=== PATIENT | female | born 2000 | race Caucasian/White ===

== ENCOUNTER 2023-07-01 09:07 | Outpatient (CLI) | payer BC, SELFPAY ==
[2023-07-01 12:48] LABS: Hematocrit 38.8 % (37.0-47.0); Hemoglobin 12.7 g/dL (12.0-15.0); Mean Corpuscular HGB Conc 32.7 g/dl (32-36); Mean Corpuscular Hemoglobin 28.7 pg (26-34); Mean Corpuscular Volume 87.8 fl (80-100); Mean Platelet Volume 10.4 fl (7.4-10.4); Platelet Count Result 416 k/mm3 (150-375); Red Blood Count 4.42 M/mm3 (4.2-5.4); Red Cell Distribution Width 13.1 % (11.5-14.5); White Blood Count 6.9 K/mm3 (4.5-10.0)
[2023-07-01 13:42] LABS: Alanine Aminotransferase 39 U/L (6-35); Albumin Level 3.7 g/dL (3.5-5.1); Alkaline Phosphatase 57 U/L (38-126); Anion Gap 7 mmol/L (8-16); Aspartate Amino Transferase 50 U/L (14-36); Bilirubin,Total 0.6 mg/dL (0.2-1.3); Blood Urea Nitrogen 10 mg/dL (7-17); Carbon Dioxide 23 mmol/L (22-30); Chloride 106 mmol/L (98-107); Cholesterol 163 mg/dL (0-200); Estimated Glomerular Filt Rate > 60; Glucose 85 mg/dL (65-110); HDL Direct 60 mg/dL; Potassium 4.1 mmol/L (3.4-5.0); Sodium 136 mmol/L (137-145); Triglycerides 98 mg/dL (<150)
[2023-07-01 13:53] LABS: LDL Cholesterol Direct 76 mg/dL
[2023-07-04 15:18] LABS: Testosterone Free 4.4 pg/mL (0.1-6.4); Testosterone Total 31 ng/dL (2-45)
[2023-07-05 10:40] LABS: Vitamin D 1,25 (OH)2 Total 35 pg/mL (18-72); Vitamin D2 1,25 (OH)2 <8 pg/mL; Vitamin D3 1,25 (OH)2 35 pg/mL
[2023-07-07 07:21] LABS: FSH 5.6 mIU/mL (***); LH 5.3 mIU/mL (***); Prolactin 18.9 ng/mL (***)
[2023-07-08 21:27] LABS: Estradiol, Ultrasensitive 57 pg/mL
== END 2023-07-01 09:08 | disposition home or self-care (01) ==
LOC: ANHGOSHLAB 09:09
PROVIDERS: PCP Family Medicine; Visit Provider Family Medicine
DX: E28.2 Polycystic ovarian syndrome (principal); E55.9 Vitamin D deficiency, unspecified; E66.9 Obesity, unspecified; F41.9 Anxiety disorder, unspecified; N92.6 Irregular menstruation, unspecified; N94.6 Dysmenorrhea, unspecified; R51.9 Headache, unspecified; R73.09 Other abnormal glucose; R79.89 Other specified abnormal findings of blood chemistry; Z13.220 Encounter for screening for lipoid disorders; Z79.899 Other long term (current) drug therapy
CPT/HCPCS: 36415; 80053; 80061; 82626; 82652; 82670; 83001; 83002; 83036; 84146; 84402; 84403; 84443; 85027